=== PATIENT | male | born 1945 | race Caucasian/White ===

== ENCOUNTER 2020-04-17 09:44 | Emergency (ER) | payer MEDICARE ==
[~2020-04-17] VITALS: Ht 190.5 cm; Wt 86.0 kg
[~2020-04-17 09:44] MED LIST: BUDE10.2 IH; CYCL10TA2 PO; DILT240C2 PO; PRED20TA PO; PROVENTIL HFA6.7 GM IH; TIOT18CA IH
[2020-04-17] MEDS ORDERED: LIDOCAINE 1%/EPI 1:100,000 20 ML VIAL. INJ ONE (11:00)
[2020-04-17] MEDS ORDERED: COCAINE 4% TOPICAL SOLUTION. TP ONE (11:00)
[2020-04-17] MEDS ORDERED: SILVER NITRATE STICK TP ONE (11:00)
[2020-04-17 11:31] VITALS: BP 162/74
[2020-04-17] MEDS ORDERED: OXYM30SP25 NS (11:40)
--- NOTE | 2020-04-17 11:40 | PHYS DOC ---
Past Medical History Past Medical History: COPD, Hypertension Past Surgical History: Other Additional Past Surgical Histo: splenectomy, eye cauterization Smoking Status: Current Every Day Smoker Alcohol Use: Occasionally Drug Use: None General Adult EDM: Chief Complaint: NOSEBLEED HPI: HPI: Patient is a 74 year old male who presented to ER for evaluation of right-sided nosebleed since last night. Patient has history hypertension, denies any headache, no chest pain, no abdominal pain. Patient said he was sneezing last night, noted blood coming from his nose the right side. It was stopped then. Woke up this morning he started having bleeding again on the right side. So he came here for evaluation. Patient is not on any blood thinner. Review of Systems: Review of Systems: Constitutional: Denies fever or chills. [] Eyes: Denies change in visual acuity. [] HENT: Denies nasal congestion or sore throat. Positive for nose bleeding. Respiratory: Denies cough or shortness of breath. [] Cardiovascular: Denies chest pain or edema. [] GI: Denies abdominal pain, nausea, vomiting, bloody stools or diarrhea. [] : Denies dysuria. [] Musculoskeletal: Denies back pain or joint pain. [] Integument: Denies rash. [] Neurologic: Denies headache, focal weakness or sensory changes. [] Endocrine: Denies polyuria or polydipsia. [] Lymphatic: Denies swollen glands. [] Psychiatric: Denies depression or anxiety. [] Heart Score: Risk Factors: Risk Factors: DM, Current or recent (<one month) smoker, HTN, HLP, family history of CAD, obesity. Risk Scores: Score 0 - 3: 2.5% MACE over next 6 weeks - Discharge Home Score 4 - 6: 20.3% MACE over next 6 weeks - Admit for Clinical Observation Score 7 - 10: 72.7% MACE over next 6 weeks - Early Invasive Strategies Current Medications: Current Medications Medications (Trade) Dose Ordered Sig/Catie Start Time Stop Time Status Last Admin Dose Admin Cocaine HCl (Cocaine 4% Topical) 4 ml 1X ONCE 04/17/20 11:00 04/17/20 11:01 DC Lidocaine/ Epinephrine (LIDOCAINE 1%-EPI 1:100,000 Multi-Dose) 20 ml 1X ONCE 04/17/20 11:00 04/17/20 11:01 DC Silver Nitrate/ Potassium Nitrate 1 each 1X ONCE 04/17/20 11:00 04/17/20 11:01 DC Allergies: Allergies: Allergies Coded Allergies Type Severity Reaction Last Updated Verified triamcinolone Allergy Intermediate nosebleeds 04/17/20 Yes Physical Exam: PE: Constitutional: Well developed, well nourished, no acute distress, non-toxic appearance. [] HENT: Normocephalic, atraumatic, bilateral external ears normal, oropharynx moist, no oral exudates, nose bleeding on right anterior nare. Eyes: PERRLA, EOMI, conjunctiva normal, no discharge. [] Neck: Normal range of motion, no tenderness, supple, no stridor. [] Cardiovascular:Heart rate regular rhythm, no murmur [] Lungs & Thorax: Bilateral breath sounds clear to auscultation [] Abdomen: Bowel sounds normal, soft, no tenderness, no masses, no pulsatile masses. [] Skin: Warm, dry, no erythema, no rash. [] Back: No tenderness, no CVA tenderness. [] Extremities: No tenderness, no cyanosis, no clubbing, ROM intact, no edema. [] Neurologic: Alert and oriented X 3, normal motor function, normal sensory function, no focal deficits noted. [] Psychologic: Affect normal, judgement normal, mood normal. [] Current Patient Data: Vital Signs: Vital Signs Date Time Temp Pulse Resp B/P (MAP) Pulse Ox O2 Delivery O2 Flow Rate FiO2 04/17/20 10:00 97.8 84 15 189/88 (121) 91 Room Air 97.8 EKG: EKG: [] Radiology/Procedures: Radiology/Procedures: Indication: Epistaxis Procedure: The patient was positioned appropriately and the nares were cleared as well as possible. The bleeding site was identified on right anterior septum. COCAINE WITH EPI SOLUTION WAS SOAKED IN A COTTON BALLS, INSERTED INTO RIGHT RIGHT NARE. Hemostasis was obtained. SILVER NITRATE STICK WAS USED TO CAUTERIZE THE BLEEDING AREA. NO MORE BLEEDING WAS OBSERVED AFTER 45 MINUTES. The patient tolerated the procedure well. Complications: none.[] Course & Med Decision Making: Course & Med Decision Making Pertinent Labs and Imaging studies reviewed. (See chart for details) [] Dragon Disclaimer: Dragon Disclaimer: This electronic medical record was generated, in whole or in part, using a voice recognition dictation system. Departure Departure Impression: Primary Impression: Anterior epistaxis Disposition: 01 DC HOME SELF CARE/HOMELESS Condition: IMPROVED Referrals: ANTONIO VERDUGO MD (PCP) ELIEZER VERDUGO MD Please call this ENT physician for outpatient follow up next week. Patient Instructions: Nosebleed Additional Instructions: Thank you for visiting our Emergency Department. We appreciate you trusting us with your care. If any additional problems come up don't hesitate to return to visit us. Please follow up with your primary care provider so they can plan additional care if needed and know about the problem that you had. If symptoms worsen come back to the Emergency Department. Any concerning symptoms that start such as chest pain, shortness of air, weakness or numbness on one side of the body, running high fevers or any other concerning symptoms return to the ER. Scripts Oxymetazoline Hcl (AFRIN) 30 Ml [place] 2 SPRAYS NS QID PRN for nose bleed, #1 BOT Prov: RANJANA TORRES DO 04/17/20 RANJANA TORRES DO Apr 17, 2020 11:40
== END 2020-04-17 11:50 | disposition home or self-care (01) ==
LOC: ER 09:44
DX: R04.0 Epistaxis (principal); J44.9 Chronic obstructive pulmonary disease, unspecified; I10 Essential (primary) hypertension; F17.200 Nicotine dependence, unspecified, uncomplicated; Z98.890 Other specified postprocedural states; Z88.8 Allergy status to other drugs, medicaments and biological substances
CPT/HCPCS: 30901; 99284; J3490

== ENCOUNTER → 2020-05-05 | Outpatient (CLI) | payer MEDICARE ==
[2020-04-30 11:00] VITALS: BP 137/77
[~2020-05-05] MED LIST changes: +LORA-434 PO; +Nicotine 14MG TD; +OXYM30SP25 NS
[2020-05-05 14:47] LABS: BASO # 0.1 x10^3/uL (0.0-0.2); BASO % 0 % (0-3); EOS % 0 % (0-3); HEMATOCRIT 39.9 % (39.0-53.0); HEMOGLOBIN 13.3 g/dL (13.0-17.5); LYMPH # 0.7 x10^3/uL (1.0-4.8); LYMPH % 4 % (24-48); MEAN CORPUSCULAR HEMOGLOBIN 30 pg (25-35); MEAN CORPUSCULAR HGB CONC 33 g/dL (31-37); MEAN CORPUSCULAR VOLUME 89 fL (79-100); MONO # 0.7 x10^3/uL (0.0-1.1); MONO % 4 % (0-9); NEUT # 17.4 x10^3/uL (1.8-7.7); NEUT % 93 % (31-73); PLATELET COUNT 311 x10^3/uL (140-400); RED BLOOD COUNT 4.51 x10^6/uL (4.30-5.70); RED CELL DISTRIBUTION WIDTH 16.6 % (11.5-14.5); WHITE BLOOD COUNT 18.8 x10^3/uL (4.0-11.0)
[2020-05-05 14:55] LABS: CALCIUM 9.4 mg/dL (8.5-10.1); CREATININE 0.8 mg/dL (0.7-1.3); POTASSIUM 4.2 mmol/L (3.5-5.1)
[2020-05-05 15:01] LABS: ALBUMIN 2.6 g/dL (3.4-5.0); ALBUMIN/GLOBULIN RATIO 0.6 (1.0-1.7); TOTAL BILIRUBIN 0.5 mg/dL (0.2-1.0); TOTAL PROTEIN 6.8 g/dL (6.4-8.2)
[2020-05-05 15:07] LABS: % LYMPHS 4 % (24-48); % MONOS 3 % (0-10); % SEGS 93 % (35-66); PLT ESTIMATE ADEQUATE (ADEQUATE); POIKILOCYTOSIS SLIGHT
[2020-05-05 15:08] LABS: SCHISTOCYTES OCC
== END ==
LOC: ONCLAB 14:24
PROVIDERS: ATTEND Internal Medicine Hematology & Oncology
DX: C34.91 Malignant neoplasm of unspecified part of right bronchus or lung (principal)
CPT/HCPCS: 36415; 80053; 85007; 85025

== ENCOUNTER → 2020-05-13 | Outpatient (CLI) | payer MEDICARE ==
[~2020-05-13] MED LIST changes: +GADOTERATE 7.5 MMOL/15ML VIAL. IVP ONE; +KETAMINE HCL IN NACL, ISO-OSM 50 MG/5 ML SYRINGE ONE; +MIDAZOLAM HCL/PF 2 MG/2 ML VIAL. ONE; +fentaNYL PF VIAL 100 MCG/2 ML VIAL ONE
[2020-05-13 13:57] VITALS: BP 154/78
--- NOTE | 2020-05-13 15:58 | RAD ---
MRI BRAIN WO+W Date: 05/13/2020 12:43 PM Indication: staging mets check. Hx lung Comparison: None. Technique: Multiplanar multisequence MRI of the brain was performed with and without intravenous cont rast using the standard protocol. 15 cc Clariscan contrast was administered intravenously during the exam. Findings: No acute infarct. No acute or chronic hemorrhage. The ventricles are normal in size and configuration without hydrocephalus. Minimal scattered FLAIR hyperintensities in the subcortical and periventricul ar deep white matter, a nonspecific finding, appropriate for patient age. No abnormal enhancement. The scalp and calvarium are normal. The pituitary and sella are normal. No Chiari malformation. The v isualized upper cervical spine is normal. The visualized orbits and globes are normal. Opacification of the left maxillary sinus. The mastoid a ir cells are clear. Normal flow voids within the vertebral, basilar, and internal carotid arteries indicating patency. IMPRESSION: No evidence of intracranial metastatic disease Electronically signed by: Abraham Baeza MD (05/13/2020 3:56 PM) [id number]
== END ==
LOC: SURG 11:42
PROVIDERS: ATTEND Internal Medicine Hematology & Oncology
DX: C34.91 Malignant neoplasm of unspecified part of right bronchus or lung (principal)
CPT/HCPCS: 70553; A9575; J2250; J3010

== ENCOUNTER → 2020-05-21 | Outpatient (CLI) | payer MEDICARE ==
[2020-05-13 13:57] VITALS: BP 154/78
[~2020-05-21] MED LIST changes: -GADOTERATE 7.5 MMOL/15ML VIAL. IVP ONE; -KETAMINE HCL IN NACL, ISO-OSM 50 MG/5 ML SYRINGE ONE; -MIDAZOLAM HCL/PF 2 MG/2 ML VIAL. ONE; -fentaNYL PF VIAL 100 MCG/2 ML VIAL ONE
--- NOTE | 2020-05-21 12:25 | RAD ---
EXAM: Dual modality PET-CT Scan DATE: 05/21/2020 RADIOPHARMACEUTICAL: 15.25 mCi F-18 fluorodeoxyglucose (FDG) IV. CLINICAL HISTORY: Lung cancer. COMPARISON: 04/27/2020 TECHNIQUE: Approximately 45 minutes after tracer administration, routine, attenuation-corrected Posit cierra Emission Tomography (PET) images were obtained from the level of the base of the skull through th e level of the mid thighs. Tomographic reconstructions are reviewed in coronal, transaxial and sagitt al planes. Non-contrast CT imaging was performed for attenuation correction and localization purpose s only. These images do not constitute a diagnostic-quality CT examination and were not used to diag nose disease independently of the PET images. The blood glucose level was 112 mg/dL at the time of FDG administration. *One or more of the following individualized dose reduction techniques were utilized for this examina tion: 1. Automated exposure control. 2. Adjustment of the mA and/or kV according to patient size. 3. Use of iterative reconstruction technique. FINDINGS: The exam is significantly limited due to patient respiratory motion. The patient was unable to complete the exam due to respiratory distress. There is a radiotracer avid right hilar and suprahilar mass with a maximum SUV of 9.3 measuring appro ximately 11.4 cm in maximum transaxial dimension and 14.5 cm in maximum craniocaudal dimension. This is not separable from suspected right mediastinal and hilar lymphadenopathy. The radiotracer activity associated with this mass extends along the right greater than left mainstem bronchi. There are radiotracer avid mass within the deep and superficial lobes of the left parotid gland and w ithin the right parotid gland with maximum SUVs of 5.6 and 6.6 on the left at 3.5 cm on the right. Th e largest of these is seen on the left measuring 2.4 cm. No additional abnormal tracer activity is se en within the head or neck. There is mild radiotracer activity associated with bilateral lower lobe infiltrate. This is likely in fectious in etiology. There is no convincing abnormal radiotracer activity associated with a heteroge neous slightly hyperdense lesion within the right kidney. There is expected tracer activity within th e bowel and renal collecting system. There is diffusely heterogeneous increased tracer activity withi n the axial and appendicular skeleton. No corresponding CT finding is seen to suggest metastatic dise ase. The CT portion of the exam demonstrates a large left suprahilar mass measuring approximately 14.4 x 1 1.4 cm in maximum dimensions. This encases the superior vena cava and there is a right superior vena cava stent. The lesion also involves the trachea and right greater than left mainstem bronchus. There is complete attenuation of the traversing left superhilar bronchi and vessels. There is tumor or asp irated mucus within the patent portion of the right mainstem bronchus. There is suspected conglomerat e right mediastinal and hilar and subcarinal lymphadenopathy which is not separable from the mass. There is no pneumothorax. There is biapical pleural parenchymal scarring and emphysema. There is part ially bilateral lower lobe infiltrate. There is lingular infiltrate. There is an 8 mm nodule within t he right middle lobe along the minor fissure, likely an enlarged fissural lymph node. There are few c alcified granulomas. There is complete opacification of the left maxillary sinus with sinus wall thickening due to chronic sinusitis. There is minimal fluid within the mastoid air cells. There is calcified plaque involving the carotid arteries. There is no neck lymphadenopathy. There are degenerative changes throughout the spine. There are multiple chronic rib fractures. There is a 4.8 cm nodule superior to the left clavi sher. This demonstrates no radiotracer activity, favoring a complex cystic etiology. There is a simila r-appearing smaller suspected sebaceous cyst within the posterior left shoulder subcutaneous fat. No hepatic lesion is seen. The gallbladder, pancreas and adrenal glands are unremarkable. There are m ultiple nodules within the left upper quadrant due to splenules/splenosis. There is a 5.8 cm lesion w ithin the upper pole of the right kidney and 1.2 cm lesion within the lateral mid zone of the right k idney. There is a suspected 10 mm hemorrhagic cyst within the anterior left kidney. There is pleural nephrolithiasis. There is no evidence of bowel obstruction. There is a moderate left inguinal hernia containing fat an d the proximal sigmoid colon. There is no evidence of bowel incarceration or mechanical obstruction. There is a small fat-containing right inguinal hernia. There is calcification within the dependent po rtion of the bladder likely due to bladder stones. There is prostatomegaly. There is heavily calcifie d plaque involving the aorta. There are nonspecific retroperitoneal lymph nodes. There are degenerati ve changes throughout the spine. There is multilevel listhesis and scoliosis. There is no acute osseo us finding. IMPRESSION: 1. Radiotracer avid right hilar and suprahilar mass measuring 14.4 cm in maximum dimension with a max imum SUV of 9.3. This is consistent with primary malignancy. This lesion encases the superior vena ca va status post stent placement and there is involvement of the trachea and right and likely left main stem bronchi, better characterized on the contrast-enhanced exam performed 04/27/2020. 2. Radiotracer avid left greater than right parotid masses. These may be due to primary parotid malig drake or metastases. These are likely amenable to sonographic guided tissue sampling if clinically in dicated. 3. No convincing radiotracer activity associated with a 5.8 cm lesion within the upper pole the left kidney. This may be a complicated/hemorrhagic cyst. A mass is not excluded. There is also a suspected hemorrhagic cyst within the left kidney. Renal sonography is recommended to exclude a solid lesion c omponent. 4. Bilateral lower lobe pneumonia. 5. Emphysema. 6. 8 mm right middle lobe pulmonary nodule, likely due to a pathologically enlarged fissural lymph no de. This is too small to characterize with PET. 7. Moderate left internal hernia containing sigmoid colon. 8. Prostatomegaly. 9. Colonic diverticulosis. 10. Suspected urinary bladder stones. 11. Diffusely heterogeneous radiotracer activity within the axial and appendicular skeleton. There is no CT correlate for this finding. 12. Note is made of the exam is limited due to patient respiratory distress. The exam is degraded by motion and the patient was unable to complete the entire exam. Electronically signed by: Olga Cuelalr MD (05/21/2020 12:21 PM) [id number]
== END ==
LOC: PETSC 11:06
PROVIDERS: ATTEND Internal Medicine Hematology & Oncology
DX: C34.11 Malignant neoplasm of upper lobe, right bronchus or lung (principal); J43.9 Emphysema, unspecified; R91.1 Solitary pulmonary nodule; J18.9 Pneumonia, unspecified organism; N28.1 Cyst of kidney, acquired; K45.8 Other specified abdominal hernia without obstruction or gangrene; K40.90 Unilateral inguinal hernia, without obstruction or gangrene, not specified as recurrent; I70.0 Atherosclerosis of aorta; K57.30 Diverticulosis of large intestine without perforation or abscess without bleeding; N40.0 Benign prostatic hyperplasia without lower urinary tract symptoms; I25.10 Atherosclerotic heart disease of native coronary artery without angina pectoris; S22.49XA Multiple fractures of ribs, unspecified side, initial encounter for closed fracture; X58.XXXA Exposure to other specified factors, initial encounter; Y93.89 Activity, other specified; Y92.89 Other specified places as the place of occurrence of the external cause; Y99.8 Other external cause status
CPT/HCPCS: 78815; A9552

== ENCOUNTER 2020-05-23 06:21 | Inpatient (IN) | payer MEDICARE ==
[~2020-05-23] VITALS: Ht 190.5 cm; Wt 78.0 kg
[2020-05-23] VITALS (13 sets, daily range): BP systolic 110–166; BP diastolic 52–76
[2020-05-23 06:45] LABS: BASE EXCESS COOX -4 mmol/L (-3-3); HCO3 COOX 22 mmol/L (21-28); METHEMOGLOBIN 0.4 % (0.0-1.9); OXYHEMOGLOBIN 93.3 %; PCO2 COOX 45 mmHg (35-46); PO2 COOX 77 mmHg (65-108); SAT O2 COOX 94 % (92-99)
[2020-05-23] MEDS ORDERED: ASPIRIN ENTERIC COATED 325 MG TABLET.DR. PO ONE (06:45)
[2020-05-23] MEDS ORDERED: IV NORMAL SALINE 1000ML BAG 1,000 ML IV ONE ×2 (06:45→09:00)
[2020-05-23] MEDS ORDERED: DEXAMETHASONE SOD PHOS 20 MG/5 ML VIAL. IVP ONE (06:45)
--- NOTE | 2020-05-23 06:56 | PHYS DOC ---
Past Medical History Past Medical History: Cancer, COPD, Hypertension Additional Past Medical Histor: NON-SMALL CELL LUNG CA Past Medical History Limited secondary to patient's respiratory distress. Past Surgical History: Other Additional Past Surgical Histo: splenectomy, eye cauterization Past Surgical History Limited secondary to patient's respiratory distress. Smoking Status: Current Every Day Smoker Alcohol Use: Occasionally Drug Use: None Social History Limited secondary to patient's respiratory distress. General Adult EDM: Chief Complaint: SHORTNESS OF BREATH HPI: HPI: Patient is a 74 year old male presents via EMS with report of shortness of breath that started upon waking this AM at approximately 0500. Patient reports he typically is on supplemental O2 of 9 L nasal cannula . Hx of small cell lung cancer and COPD. Patient recently admitted to the hospital in April at which time it was found he had large mass in chest and concern for additional mass on kidney. Patient denies any fever or chills. Reports increased work of breathing that is worse with exertion. Denies trauma. Reports some leg swelling which he reports is his baseline. Denies history of PE/DVT. Denies known exposure to COVID-19. Patient does report has been tested several times in the last month which have all been negative. History of present illness limited secondary to patient's respiratory distress. Review of Systems: Review of Systems: Constitutional: Denies fever or chills Eyes: Denies redness or eye pain HENT: Denies nasal congestion or sore throat Respiratory: Denies cough; reports shortness of breath Cardiovascular: Denies chest pain or palpitations GI: Denies nausea or vomiting Neurologic: Denies headache, focal weakness or sensory changes Review of systems limited secondary to patient's respiratory distress. Current Medications: Current Medications Medications (Trade) Dose Ordered Sig/Catie Start Time Stop Time Status Last Admin Dose Admin Aspirin (Ecotrin) 325 mg 1X ONCE 05/23/20 06:45 05/23/20 06:46 DC Dexamethasone Sodium Phosphate (Decadron) 10 mg 1X ONCE 05/23/20 06:45 05/23/20 06:46 DC Lorazepam (Ativan Inj) 0.5 mg 1X ONCE 05/23/20 07:00 05/23/20 07:01 Sodium Chloride 1,000 ml @ 1,000 mls/hr 1X ONCE 05/23/20 06:45 05/23/20 07:44 Allergies: Allergies: Allergies Coded Allergies Type Severity Reaction Last Updated Verified triamcinolone Allergy Intermediate nosebleeds 04/28/20 Yes Physical Exam: PE: Constitutional: Well developed, well nourished, acute respiratory distress, non- toxic appearance HENT: Normocephalic, atraumatic Eyes: Conjunctiva normal, no discharge Neck: Normal range of motion, no tenderness, supple Lungs & Thorax: Moderate respiratory distress, equal chest rise and fall Abdomen: Soft, no tenderness Skin: Warm, dry, no erythema, no rash Extremities: No tenderness, ROM intact, no edema Neurologic: Alert and oriented X 3, no focal deficits noted Psychologic: Affect anxious, judgment normal Current Patient Data: Vital Signs: Vital Signs Date Time Temp Pulse Resp B/P (MAP) Pulse Ox O2 Delivery O2 Flow Rate FiO2 05/23/20 06:25 99.2 107 28 136/59 (84) 89 NonRebreather Mask 15.0 99.2 EKG: EKG: @0633 Sinus tachycardia at 137bpm, occasional PVC, wandering baseline, QRS 90ms, QT/QTc 252/382ms, NO ST elevation, slight ST depression noted to V4-V6 Radiology/Procedures: Radiology/Procedures: PROCEDURE: CT ANGIOGRAPHY CHEST CTA chest with and without contrast 05/23/2020. Reason for exam: Dyspnea and hypoxia. History of lung mass. Helical thin section images were made through the chest using an infusion of 100 mL Omnipaque 350. MIP reconstructions were performed. Comparison is made with a study of 04/27/2020. FINDINGS: A large mass is again demonstrated in the upper right chest involving the lung and extending to the mediastinum. This appears very similar to the prior study. There may have been slight enlargement. Mediolateral dimension just below the aortic arch is about 10.3 cm compared with about 9.7 cm by my measurement previously. The mass is narrowing and deviating the trachea and obstructing the right mainstem bronchus and proximal lobar bronchi. The distal trachea may be slightly more narrowed than previously. There appear to be secretions within right lower lobe bronchi, similar to the prior exam. There is also still narrowing of the right upper lobe pulmonary artery branch. There is still mild adjacent infiltrate. There is some respiratory motion artifact, but infiltrate or atelectasis is also seen in the lower lobes. There appears to have been some improved aeration of the left lower lobe. No significant new parenchymal abnormality is seen. There is some emphysema in the lungs. No new enlarged lymph nodes are seen elsewhere. Confluent soft tissue abnormality extends from the right into the mid mediastinum and subcarinal regions and toward the AP window. There is now a stent in the SVC, and contrast is seen extending through the stent. Evaluation of the pulmonary arterial tree demonstrates narrowing of the right upper lobe branch, as described above. There is probably occlusion of some of the branches. No filling defect is seen to indicate pulmonary embolism. Evaluation of lower lobe branches is slightly limited by motion. Images through the upper abdomen show soft tissue abnormality in the anterior right kidney suggesting a mass. No new abnormality is seen. The right hemidiaphragm remains elevated. IMPRESSION: Right lung mass may have increased slightly in size. It is causing narrowing and probable occlusion of some of the right upper lobe pulmonary artery branches, but this had a similar appearance previously. No pulmonary embolism is identified on today's study. Electronically signed by: Jaison Hollis Jr., MD (05/23/2020 8:58 AM) [id number] Course & Med Decision Making: Course & Med Decision Making Pertinent Labs and Imaging studies reviewed. (See chart for details) Patient presents in respiratory distress and hypoxia. History of known non- small cell lung cancer with compression of bronchus. Patient tachycardic. Cannot exclude PE. Cannot exclude COVID-19. Per [facility] review last Covid testing from 04/27/2020. COVID-[address] Patient placed on Vapotherm high flow nasal cannula with improvement. Patient does appear anxious. Anxiety and discomfort addressed. Labs obtained and posted to chart. Patient also with recent PET scan per [facility] review with signs of possible pneumonia. Decision to start empiric antibiotics at this time. WBC slightly elevated. Lactic acid within normal limits. Troponin also within normal limits. COVID-19 testing pending. CTA chest without signs of PE. Concern for enlargement of mass in comparison to prior CT from April 2020. Patient requiring admission for further evaluation and treatment. Discussed with Dr. Verdugo (PCP) who is in agreement with ICU admission. Consult placed to Dr. Harper (pulmonology). Discussed case with Dr. Harper, who evaluated patient in ED and discussed case with family. Discussed findings and plan with patient, who acknowledges understanding and agreement. Of note: patient initially requested "Full CODE" status. After discussion with Dr. Harper regarding findings, patient elected to change CODE status to "DNR". CODE status therefore updated in admission orders. COVID-19 CRITERIA: The patient was evaluated during the global COVID-19 pandemic, and that diagnosis was suspected/considered upon their initial presentation. Their evaluation, treatment and testing was consistent with current guidelines for patients who present with complaints or symptoms that may be related to COVID-19. Dragon Disclaimer: Dragon Disclaimer: This electronic medical record was generated, in whole or in part, using a voice recognition dictation system. Departure Departure Impression: Primary Impression: Respiratory failure Qualified Codes: J96.21 - Acute and chronic respiratory failure with hypoxia Additional Impressions: Lung malignancy Qualified Codes: C34.90 - Malignant neoplasm of unspecified part of unspecified bronchus or lung Hypoxia Suspected 2019 novel coronavirus infection Disposition: ADMITTED INPT THIS HOSP Admitting Physician: Antonio Verdugo Condition: GUARDED Referrals: ANTONIO VERDUGO MD (PCP) COVID-19 Assessment: COVID-19 Patient Risks: Age 65 or older: Yes Sign of co-morbidity: Yes Exp to person + for COVID: No Exp to PUI: No Travel from affected area: No Lower respiratory symptoms: Yes Fever: No PPE Use: Full PPE with N95 mask or PAPR: Yes Critical Care Time Critical care time was 30 minutes which includes time at bedside, spent in discussion of patient's care with specialists and/or family members, with interpretation of laboratory and/or radiological studies and is exclusive of procedures. ISRAEL MARK DO May 23, 2020 06:56
[2020-05-23 06:57] LABS: BASO # 0.1 x10^3/uL (0.0-0.2); BASO % 1 % (0-3); EOS # 0.7 x10^3/uL (0.0-0.7); EOS % 5 % (0-3); HEMATOCRIT 39.8 % (39.0-53.0); HEMOGLOBIN 13.2 g/dL (13.0-17.5); LYMPH % 30 % (24-48); MEAN CORPUSCULAR HEMOGLOBIN 30 pg (25-35); MEAN CORPUSCULAR HGB CONC 33 g/dL (31-37); MEAN CORPUSCULAR VOLUME 90 fL (79-100); MONO # 1.4 x10^3/uL (0.0-1.1); MONO % 10 % (0-9); NEUT # 7.4 x10^3/uL (1.8-7.7); NEUT % 55 % (31-73); PLATELET COUNT 204 x10^3/uL (140-400); RED BLOOD COUNT 4.44 x10^6/uL (4.30-5.70); WHITE BLOOD COUNT 13.6 x10^3/uL (4.0-11.0)
[2020-05-23] MEDS ORDERED: IOHEXOL 350 MG/ML 100 ML VIAL. IV ONE (07:15)
[2020-05-23] MEDS ORDERED: CONTRAST GIVEN. MC PRN (07:15)
[2020-05-23] MEDS ORDERED: IPRATRPIUM/ALBUTEROL 0.5/2.5MG 3 ML NEBU. NEB ONE ×2 (07:45→13:45)
[2020-05-23] MEDS ORDERED: PIPERACILLIN/TAZOBACTAM 4.5 GM in IV NORMAL SALINE 100ML 100 ML IV ONE (07:45)
[2020-05-23] MEDS ORDERED: AZITHRMYCN 500MG IVPB FOR OMNI 250 ML IV ONE (07:45)
[2020-05-23] MEDS ORDERED: MORPHINE SULFATE 4 MG/ML VIAL. IV ONE (07:45)
[2020-05-23 08:10] LABS: CALCIUM 9.6 mg/dL (8.5-10.1); CREATININE 0.8 mg/dL (0.7-1.3); POTASSIUM 3.8 mmol/L (3.5-5.1)
[2020-05-23 08:16] LABS: ALBUMIN 2.7 g/dL (3.4-5.0); ALBUMIN/GLOBULIN RATIO 0.8 (1.0-1.7); MAGNESIUM 1.8 mg/dL (1.8-2.4); TOTAL BILIRUBIN 0.5 mg/dL (0.2-1.0)
[2020-05-23 08:17] LABS: INFLUENZA A PATIENT NEGATIVE (NEGATIVE); INFLUENZA B PATIENT NEGATIVE (NEGATIVE)
[2020-05-23 08:21] LABS: PROTHROMBIN TIME PATIENT 13.5 SEC (11.7-14.0)
[2020-05-23 08:25] LABS: CREATINE KINASE 19 U/L (39-308)
--- NOTE | 2020-05-23 09:12 | RAD ---
CTA chest with and without contrast 05/23/2020. Reason for exam: Dyspnea and hypoxia. History of lung mass. Helical thin section images were made through the chest using an infusion of 100 mL Omnipaque 350. UT P reconstructions were performed. Comparison is made with a study of 04/27/2020. FINDINGS: A large mass is again demonstrated in the upper right chest involving the lung and extendin g to the mediastinum. This appears very similar to the prior study. There may have been slight enlarg ement. Mediolateral dimension just below the aortic arch is about 10.3 cm compared with about 9.7 cm by my measurement previously. The mass is narrowing and deviating the trachea and obstructing the rig ht mainstem bronchus and proximal lobar bronchi. The distal trachea may be slightly more narrowed cheng n previously. There appear to be secretions within right lower lobe bronchi, similar to the prior exa m. There is also still narrowing of the right upper lobe pulmonary artery branch. There is still mild adjacent infiltrate. There is some respiratory motion artifact, but infiltrate or atelectasis is als o seen in the lower lobes. There appears to have been some improved aeration of the left lower lobe. No significant new parenchymal abnormality is seen. There is some emphysema in the lungs. No new enla rged lymph nodes are seen elsewhere. Confluent soft tissue abnormality extends from the right into th e mid mediastinum and subcarinal regions and toward the AP window. There is now a stent in the SVC, a nd contrast is seen extending through the stent. Evaluation of the pulmonary arterial tree demonstrates narrowing of the right upper lobe branch, as d escribed above. There is probably occlusion of some of the branches. No filling defect is seen to ind icate pulmonary embolism. Evaluation of lower lobe branches is slightly limited by motion. Images through the upper abdomen show soft tissue abnormality in the anterior right kidney suggesting a mass. No new abnormality is seen. The right hemidiaphragm remains elevated. IMPRESSION: Right lung mass may have increased slightly in size. It is causing narrowing and probable occlusion of some of the right upper lobe pulmonary artery branches, but this had a similar appearan ce previously. No pulmonary embolism is identified on today's study. Electronically signed by: Jaison Hollis Jr., MD (05/23/2020 8:58 AM) [id number]
[2020-05-23] MEDS ORDERED: ACETAMINOPHEN 325 MG TABLET. PO PRN (09:30)
[2020-05-23] MEDS ORDERED: MORPHINE SULFATE 4 MG/ML VIAL. IV PRN (09:30)
[2020-05-23] MEDS ORDERED: ONDANSETRON PF 4 MG/2 ML VIAL. IV PRN (09:30)
[2020-05-23] MEDS ORDERED: HYDROmorphone 2 MG/ML VIAL IVP ONE (12:00)
--- NOTE | 2020-05-23 12:01 | EKG ---
[facility] [address] [place] [address] Test Date: 2020-05-23 Test Time: 06:33:22 Pat Name: ECHO CROSS Department: Room: Gender: M Certified Pedorthotist: : 1945 Requested By: ISRAEL MARK Order Number: [id number] Reading MD: Measurements Intervals [place] Rate: 137 P: 90 AR: 132 QRS: 66 QRSD: 90 T: 154 QT: 252 QTc: 382 Interpretive Statements SINUS TACHYCARDIA COMPLEX(ES) WITH ABERRANT INTRAVENTRICULAR CONDUCTION ATRIAL PREMATURE COMPLEX(ES) ST & T ABNORMALITY, CONSIDER ANTERIOR ISCHEMIA OR LEFT VENTRICULAR STRAIN INFEROLATERAL ISCHEMIA OR LEFT VENTRICULAR STRAIN ABNORMAL ECG RI6.02 No previous ECG available for comparison
[2020-05-23] MEDS ORDERED: STERILE WATER for RESP 1,000 ML BAG. INH PRN (12:15)
--- NOTE | 2020-05-23 12:16 | CONS ---
DATE OF CONSULTATION: PULMONARY CONSULTATION ATTENDING PHYSICIAN: Lukas Arce MD REASON FOR CONSULTATION: Respiratory failure, lung cancer. HISTORY OF PRESENT ILLNESS: The patient is a 74-year-old male who was diagnosed with non-small cell lung cancer in 04/2020. The patient presented with a large soft tissue mass in the right upper mediastinum, right hilum and extension into the right upper lobe. There was also occlusion of the right upper lobe and right mainstem extrinsic compression and also right upper lobe pulmonary arteries with high-grade narrowing of the SVC. The patient had a bronchoscopy. There was total occlusion of his right mainstem bronchus. There was all extrinsic compression. The patient eventually was diagnosed with non-small cell lung cancer. He has not had any radiation or chemo yet. He has been referred to radiation oncologist. He underwent stent placement of his superior vena cava. He was brought into the hospital with progressive dyspnea. He had some audible wheezing. He is on home oxygen at 9 liters via nasal cannula. The patient was seen by me in the ER. I could hear audible wheezing, which were faint. He appears to be very weak and emaciated. He has been losing weight progressively. He has a cough. No fever, no chills. No COVID exposure. PAST MEDICAL HISTORY: History of non-small cell lung cancer diagnosed recently as detailed above. History of COPD, hypertension, cancer. PAST SURGICAL HISTORY: Splenectomy and ____ cauterization. SOCIAL HISTORY: Everyday smoker for at least 40+ years. ALLERGIES: Triamcinolone. MEDICATIONS: Reviewed that were given in the ER. FAMILY HISTORY: Noncontributory to lungs. PHYSICAL EXAMINATION: VITAL SIGNS: Reviewed. Pulse ox 94% on 40 L Vapotherm. He appears weak, emaciated. NECK: Supple. LUNGS: With diminished breath sounds on the right side. CARDIOVASCULAR: With a regular rate and tachycardia. ABDOMEN: Soft. EXTREMITIES: With no pitting edema. LABORATORY DATA: SARS COVID rapid was negative. BUN 24, creatinine 0.8. ABGs with a pH of 7.31, pCO2 of 45, pO2 of 77 and bicarbonate of 22, 100% nonrebreather mask. Albumin 2.7. White cell count 13.6, hemoglobin 13.2 and platelets 204. IMAGING STUDIES: The PET scan from 05/21/2020 was reviewed. The patient had a 14.4 cm mass in the right hilar and suprahilar area. This was encasing the superior vena cava, status post stent placement. There was involvement of the trachea and right and left main stem bronchus. The patient's SUV was 9.3. IMPRESSION: 1. Acute on chronic hypoxic respiratory failure secondary to multifactorial etiologies including progression of non-small cell lung cancer, underlying chronic obstructive pulmonary disease and audible wheezing from airway obstruction. 2. The patient with recently diagnosed non-small cell lung cancer. He has had 14.4 cm mass in the right hilar and suprahilar area with extension and encasement of the superior vena cava. He is status post stent. There is involvement of the trachea with extrinsic compression and also involvement of the right and left main stem bronchus with airway compression. He is nonresectable. 3. Status post stent for superior vena cava syndrome. 4. Postobstructive pneumonia. 5. History of pseudomonas isolated from bronchoscopy in Apr 6. Suspected end-stage chronic obstructive pulmonary disease. RECOMMENDATIONS: 1. At this point, we will continue with present Vapotherm at 100% FiO2. Wean FiO2 to keep saturation 92 and above. Does not like BIPAP 2. I have discussion with the patient and in addition, his and daughter. I explained his poor prognosis from his progressive cancer. The patient agreed for DNR. In the meantime, we will consult Radiation Oncology for empiric radiation to reduce the tumor burden and hopefully improve patency of the airway. 3. Follow ABGs as needed while on Vapotherm. 4. Bronchodilators. 5. Add IV steroids. 6. Empiric antibiotics. 7. If the patient declines further, then we will go with comfort care and palliative care. 8. Discussed with ER physician, the patient's and daughter. Critical care time 40 minutes. MONTSERRAT CASTAÑEDA MD DR: OLIVIA/jonnie JOB#: [id number] / [id number] COLT
[2020-05-23] MEDS ORDERED: HYDROmorphone 2 MG/ML VIAL IVP PRN (14:00)
--- NOTE | 2020-05-23 16:00 | NUR ---
Pt arrived to [facility] 115 via ER cart. Pt alert and oriented, switched from 100% non rebreather to Vapotherm 100%. Pt moved to ICU bed and hooked up on monitor. Dr. Arce paged and orders received for Dilaudid 0.6mg IV PRN Q3HRS. No fluids ordered. Pt on cardiac diet and tolerating Ensure. Refusing meals as he says he has a hard time swallowing food. Pt oriented to call light and telephone. Urinal at bedside for pt. Attempt to call Dr. Sparrow but answering service unavailable. at bedside and updated on plan of care. Questions answered.
[2020-05-23] MEDS ORDERED: C.DIFF MED SCREEN BY RX. MC ONE (16:45)
[2020-05-23] MEDS ORDERED: NON FORMULARY ITEM (Albuterol Sulfate (Proventil Hfa Inhaler) 1 PUFF) IH PRN (17:00)
[2020-05-23] MEDS ORDERED: ALBUTEROL SULFATE 2.5 MG/3 ML NEBU. NEB PRN (17:15)
[2020-05-23] MEDS ORDERED: NICOTINE 14MG PATCH. TD PRN (17:15)
[2020-05-23] MEDS: HYDROmorphone 2 MG/ML VIAL IVP PRN ×2 (18:47→22:47)
[2020-05-23] MEDS ORDERED: IPRATRPIUM/ALBUTEROL 0.5/2.5MG 3 ML NEBU. NEB SCH (20:00)
[2020-05-23] MEDS: BUDESONIDE 0.5 MG/2 ML NEBU. NEB SCH (20:00)
[2020-05-23] MEDS: IPRATRPIUM/ALBUTEROL 0.5/2.5MG 3 ML NEBU. NEB SCH (20:00)
[2020-05-23] MEDS ORDERED: NON FORMULARY ITEM (Budesonide/Formoterol Fumarate (Symbicort 160-4.5 Mcg Inhaler) 2 PUFF) IH SCH (21:00)
[2020-05-24] VITALS (14 sets, daily range): BP systolic 120–183; BP diastolic 42–85
[2020-05-24] MEDS: HYDROmorphone 2 MG/ML VIAL IVP PRN (03:07)
[2020-05-24] MEDS: BUDESONIDE 0.5 MG/2 ML NEBU. NEB SCH ×2 (08:00→20:00)
[2020-05-24] MEDS: IPRATRPIUM/ALBUTEROL 0.5/2.5MG 3 ML NEBU. NEB SCH ×4 (08:00→20:00)
[2020-05-24] MEDS ORDERED: IV NORMAL SALINE 1000ML BAG 1,000 ML IV SCH (09:00)
[2020-05-24] MEDS ORDERED: MORPHINE SULFATE 2 MG/ML VIAL. IV ONE (09:00)
[2020-05-24] MEDS ORDERED: NON FORMULARY ITEM (Tiotropium Bromide (Spiriva) 1 CAP) IH SCH (09:00)
[2020-05-24] MEDS ORDERED: MORPHINE SULFATE 30 ML IV PRN (09:00)
[2020-05-24] MEDS ORDERED: NALOXONE 0.4 MG/ML VIAL. IV PRN (09:00)
--- NOTE | 2020-05-24 09:07 | PDOC ---
Provider Note Date of Service: DATE: 05/24/20 TIME: 09:05 Provider Note dictated, after eval and discussion, will start ms infusion and still use prn loraz- rad onc consult pending but may not be able to tolleate tx re dyspnea, tumor sixe- she agrees to plan Justifications for Admission Other Justification ANTONIO VERDUGO MD May 24, 2020 09:07
[2020-05-24] MEDS ORDERED: ONDANSETRON PF 4 MG/2 ML VIAL. IVP PRN (09:45)
--- NOTE | 2020-05-24 09:45 | HP ---
ADMIT DATE: CHIEF COMPLAINT: Dyspnea. HISTORY OF PRESENT ILLNESS: A 74-year-old white male recently diagnosed with non-small cell cancer of the right upper lobe with risk of this. He will be considered superior vena cava syndrome. He had a stent placed in the superior vena cava to prevent that obstruction, but has not yet seen an outpatient Oncology to schedule any specific treatment either radiation or chemo. Tumor was diagnosed by biopsy when the endobronchial exam showed complete obstruction of the right upper lobe. He came in with increasing dyspnea and air hunger and is on Vapotherm now 100% oxygen. He has decided not to be intubated, wants to be a DNR. PAST MEDICAL HISTORY: See old record. ALLERGIES: No allergies are known. SOCIAL HISTORY: Still a smoker until this recently, , retired. FAMILY HISTORY: Unremarkable. REVIEW OF SYSTEMS: Severe weight loss and progressive fatigue. OBJECTIVE: ENT: Unremarkable, though he has mask and Vapotherm on. NECK: No bruits, nodes or masses. LUNGS: Decreased breath sounds throughout his chest. He is audibly wheezing. CARDIOVASCULAR: Rate is about 100. Regular. No murmur is heard. ABDOMEN: Soft, benign, nontender. EXTREMITIES: He has 2+ clubbing. He has no edema. No joint or skin lesions. NEUROLOGIC: He is alert, agitated from air hunger. No focal findings are seen. ASSESSMENT: Progressive enlargement of a large primary pulmonary malignancy what appears to be a critical mass at this point. PLAN: Comfort care. We will add morphine infusion with p.r.n. lorazepam, pending consults of Radiation Oncology and Dr. Harper has already seen him. Prognosis is likely terminal. ANTONIO VERDUGO MD DR: NAYAN/jonnie JOB#: [id number] / [id number]
--- NOTE | 2020-05-24 09:57 | PDOC ---
PULMONARY PROGRESS NOTES DATE: 05/24/20 TIME: 09:54 Subjective CONFUSED, RESTLESS REMAINS ON 100%fio2 Vitals Vital Signs Date Time Temp Pulse Resp B/P (MAP) Pulse Ox O2 Delivery O2 Flow Rate FiO2 05/24/20 09:42 30 Vapotherm 40.0 05/24/20 08:07 96 05/24/20 06:00 96 164/71 (102) 05/24/20 01:13 97.5 97.5 General: Mild Distress Lungs: Other (decrease bs) Cardiovascular: S1 Abdomen: Soft Extremities: No Edema Skin: Warm Labs Laboratory Tests Test 05/23/20 06:30 05/23/20 06:38 05/23/20 07:30 05/23/20 07:35 O2 Saturation 94 % (92-99) Arterial Blood pH 7.31 (7.35-7.45) Arterial Blood pCO2 at Patient Temp 45 mmHg (35-46) Arterial Blood pO2 at Patient Temp 77 mmHg (65-108) Arterial Blood HCO3 22 mmol/L (21-28) Arterial Blood Base Excess -4 mmol/L (-3-3) Oxyhemoglobin 93.3 % Methemoglobin 0.4 % (0.0-1.9) Carbon Monoxide, Quantitative 0.3 % (0.0-1.9) FiO2 100 nrb White Blood Count 13.6 x10^3/uL (4.0-11.0) Red Blood Count 4.44 x10^6/uL (4.30-5.70) Hemoglobin 13.2 g/dL (13.0-17.5) Hematocrit 39.8 % (39.0-53.0) Mean Corpuscular Volume 90 fL (79-100) Mean Corpuscular Hemoglobin 30 pg (25-35) Mean Corpuscular Hemoglobin Concent 33 g/dL (31-37) Red Cell Distribution Width 17.0 % (11.5-14.5) Platelet Count 204 x10^3/uL (140-400) Neutrophils (%) (Auto) 55 % (31-73) Lymphocytes (%) (Auto) 30 % (24-48) Monocytes (%) (Auto) 10 % (0-9) Eosinophils (%) (Auto) 5 % (0-3) Basophils (%) (Auto) 1 % (0-3) Neutrophils # (Auto) 7.4 x10^3/uL (1.8-7.7) Lymphocytes # (Auto) 4.0 x10^3/uL (1.0-4.8) Monocytes # (Auto) 1.4 x10^3/uL (0.0-1.1) Eosinophils # (Auto) 0.7 x10^3/uL (0.0-0.7) Basophils # (Auto) 0.1 x10^3/uL (0.0-0.2) Prothrombin Time 13.5 SEC (11.7-14.0) Prothromb Time International Ratio 1.1 (0.8-1.1) Activated Partial Thromboplast Time 34 SEC (24-38) Sodium Level 144 mmol/L (136-145) Potassium Level 3.8 mmol/L (3.5-5.1) Chloride Level 105 mmol/L (98-107) Carbon Dioxide Level 27 mmol/L (21-32) Anion Gap 12 (6-14) Blood Urea Nitrogen 24 mg/dL (8-26) Creatinine 0.8 mg/dL (0.7-1.3) Estimated GFR (Cockcroft-Gault) 94.0 BUN/Creatinine Ratio 30 (6-20) Glucose Level 110 mg/dL (70-99) Lactic Acid Level 1.7 mmol/L (0.4-2.0) Calcium Level 9.6 mg/dL (8.5-10.1) Magnesium Level 1.8 mg/dL (1.8-2.4) Total Bilirubin 0.5 mg/dL (0.2-1.0) Aspartate Amino Transf (AST/SGOT) 18 U/L (15-37) Alanine Aminotransferase (ALT/SGPT) 19 U/L (16-63) Alkaline Phosphatase 80 U/L (46-116) Creatine Kinase 19 U/L (39-308) Creatine Kinase MB (Mass) 1.1 ng/mL (0.0-3.6) Creatine Kinase MB Relative Index % (0-4) Troponin I Quantitative < 0.017 ng/mL (0.000-0.055) TD-Ftj-S-Type Natriuretic Peptide 329 pg/mL (0-449) Total Protein 6.0 g/dL (6.4-8.2) Albumin 2.7 g/dL (3.4-5.0) Albumin/Globulin Ratio 0.8 (1.0-1.7) Coronavirus (PCR) Not detected (Not Detected) Influenza Type A Antigen Negative (NEGATIVE) Influenza Type B Antigen Negative (NEGATIVE) Test 05/23/20 07:36 SARS-CoV-2 Antigen (Rapid) Negative (NEGATIVE) Medications Active Scripts Medications Dose Route/Sig Max Daily Dose Days Date Category Ativan (Lorazepam) 1 Mg Tablet 1 Mg PO PRN Q8HRS PRN 5 04/30/20 Rx [Nicotine 14MG] 1 PATCH Patch 1 Patch TD PRN DAILY PRN 30 04/30/20 Rx Symbicort 160-4.5 Mcg Inhaler (Budesonide/Formoterol Fumarate) 10.2 Gm Hfa.aer.ad 2 Puff IH BID 02/23/16 Reported Proventil Hfa Inhaler (Albuterol Sulfate) 6.7 Gm Hfa.aer.ad 1 Puff IH PRN Q4HRS PRN 02/23/16 Reported Spiriva (Tiotropium [place]) 18 Mcg Cap.w.dev 1 Cap IH DAILY 02/23/16 Reported Cardizem Cd (Diltiazem Hcl) 240 Mg Cap.er.24h 1 Cap PO DAILY 02/23/16 Reported Impression . 1. Acute on chronic hypoxic respiratory failure secondary to multifactorial etiologies including progression of non-small cell lung cancer, underlying chronic obstructive pulmonary disease and audible wheezing from airway obstruction. 2. The patient with recently diagnosed non-small cell lung cancer. He has had 14.4 cm mass in the right hilar and suprahilar area with extension and encasement of the superior vena cava. He is status post stent. There is involvement of the trachea with extrinsic compression and also involvement of the right and left main stem bronchus with airway compression. He is nonresectable. 3. Status post stent for superior vena cava syndrome. 4. Postobstructive pneumonia. 5. History of pseudomonas isolated from bronchoscopy in Apr 18. Suspected end-stage chronic obstructive pulmonary disease. Plan . 1. At this point, we will continue with present 100% FiO2. Wean FiO2 to keep saturation 92 and above. Does not like BIPAP 2. I have discussion with the his again today. I explained his poor prognosis from his progressive cancer. Not sure if he can tolerate radiation at present. MS prior to XRT may worsen hypoxia. wants to still try XRT D/W Dr Rodriguez Radiation Oncology 3. Follow ABGs as needed 4. Bronchodilators. 5. IV steroids. 6. Empiric antibiotics. 7. If the patient declines further, then we will go with comfort care and palliative care. 8. cct 30 min MONTSERRAT CASTAÑEDA MD May 24, 2020 09:57
--- NOTE | 2020-05-24 10:46 | NUR ---
SS following up with discharge planning. SS reviewed pt chart and discussed with pt RN. Pt is from home with spouse. COVID19 negative. Pt was on Vapotherm at 100% and non-rebreather mask. Pt now comfort care. DNR. SS will continue to follow as needed.
--- NOTE | 2020-05-24 10:54 | NUR ---
Pharmacy Medication Review S: Consulted for medication review re: C.diff Risk Assessment score of 6 O: ECHO CROSS is a 74 year old with: Previous C.diff infection: No Previous hospitalization: Within 30 days Recent antibiotics: Within 30 days Use of gastric acid suppressor: No Transfer from MD/LTAC: No Current antibiotic regimen: NONE Current acid suppression regimen: A: Patient has been identified as having risk factors for C.diff infection as noted above. P: ABX DE-ESCALATION RECOMMENDED: PT NOT ON ABX PROBIOTIC ORDERED: NO PPI CHANGED TO [id number]: NO PHILIP العلي [facility], 05/24/20 1058
--- NOTE | 2020-05-24 13:47 | NUR ---
SS following up with discharge planning. Pt's RN contacted SS and reported that pt's spouse is requesting home with hospice services. SS phoned and faxed referral to [facility], ; fax [phone]. BIN reaching out to pt and family and will notify SS when consents are completed. SS will continue to follow for discharge planning.
[2020-05-24] MEDS: MORPHINE SULFATE 30 ML IV PRN ×2 (15:07→21:13)
--- NOTE | 2020-05-24 17:40 | NUR ---
SW following for discharge planning. SW spoke with RN and reviewed chart. Pt transferred to . Spoke with [facility]. Pt to discharge home tomorrow, 05/25 with hospice care. Pt's requesting transportation for around noon. SW to arrange. SW following.
--- NOTE | 2020-05-24 20:00 | NUR ---
Assessment completed. Patient sleeping in chair, on [employer] and comfort care. Does not respond to name. at bedside and staying with patient. states that her wishes are for us not to wake her as he has been "suffering the last few nights and finally just got medicated enough so he is not in pain." Will respect patient/family wishes, as patient is comfort care.
[2020-05-25] MEDS: MORPHINE SULFATE 30 ML IV PRN ×2 (03:10→09:12)
[2020-05-25 07:00] VITALS: BP 109/40
--- NOTE | 2020-05-25 08:21 | SNU/HH DC ---
DISCHARGE ORDERS DISCHARGE INFORMATION: FINAL DIAGNOSIS Problems Medical Problems: (1) Hypoxia Status: Acute (2) Lung malignancy Status: Acute (3) Respiratory failure Status: Acute (4) Suspected 2019 novel coronavirus infection Status: Acute CONDITION ON DISCHARGE: Critical CODE STATUS: Code Status: DNR/DNI HOSPICE: HOSPICE: Yes HOSPICE EVAL & TREAT: Yes POST DISCHARGE ORDERS: ACTIVITY ORDERS: Activity as tolerated DISCHARGE MEDICATIONS: Home Meds Active Scripts Lorazepam (ATIVAN) 1 Mg Tablet, 1 MG PO PRN Q8HRS PRN for ANXIETY / AGITATION for 5 Days, #15 TAB 0 Refills Prov:TALI CAPONE MD 04/30/20 [Nicotine 14MG] 1 PATCH PATCH No Conflict Check, 1 PATCH TD PRN DAILY PRN for SMOKING CESSATION for 30 Days, #30 1 Refill Prov:TALI CAPONE MD 04/30/20 Reported Medications Budesonide/Formoterol Fumarate (SYMBICORT 160-4.5 MCG INHALER) 10.2 Gm Hfa.aer.ad, 2 PUFF IH BID, #10.6 GM 3 Refills 02/23/16 Albuterol Sulfate (PROVENTIL HFA INHALER) 6.7 Gm Hfa.aer.ad, 1 PUFF IH PRN Q4HRS PRN for SHORTNESS OF BREATH, INHALER 0 Refills 02/23/16 Tiotropium [place] (SPIRIVA) 18 Mcg Cap.w.dev, 1 CAP IH DAILY, #30 CAP 3 Refills 02/23/16 Diltiazem Hcl (CARDIZEM CD) 240 Mg Cap.er.24h, 1 CAP PO DAILY, #30 CAP 5 Refills 02/23/16 ANTONIO VERDUGO MD May 25, 2020 08:21
--- NOTE | 2020-05-25 08:24 | PDOC ---
Provider Note Date of Service: DATE: 05/25/20 TIME: 08:23 Provider Note [id number] Justifications for Admission Other Justification ANTONIO VERDUGO MD May 25, 2020 08:24
--- NOTE | 2020-05-25 08:53 | DS ---
DATE OF DISCHARGE: 05/25/2020 HOSPITAL SUMMARY: A 74-year-old white male with known stage IV non-small cell lung cancer, came in with increasing respiratory distress and much larger right lung tumor. Laboratory studies were unremarkable. He was made a DNR, comfort care and was on IV morphine and lorazepam and currently on about 5 mg an hour of morphine and unresponsive with a respiratory rate of about 5 or 6 per minute. He and his family wished for him to go home with hospice and hospice has already been consulted and this will be accomplished today if he still survives. is fully aware of his situation, is comfortable with the process and is advised this is expected will be in the next 1-2 days. FINAL DIAGNOSES: 1. Stage IV non-small cell lung cancer, progressive. 2. Acute respiratory distress secondary to lung cancer. OPERATIONS, PROCEDURES, COMPLICATIONS: None. CONSULTATIONS: Dr. Harper and [facility]. DISPOSITION: He will go home on morphine 5 mg an hour, p.r.n. lorazepam and any other p.r.n. meds as needed. His prognosis is terminal in the next several hours to a day or two. ANTONIO VERDUGO MD DR: NAYAN/nts JOB#: [id number] / [id number]
--- NOTE | 2020-05-25 10:12 | PDOC ---
PULMONARY PROGRESS NOTES DATE: 05/25/20 TIME: 10:07 Subjective now on hospice 5 liters N/C and Morphine gtt Vitals Vital Signs Date Time Temp Pulse Resp B/P (MAP) Pulse Ox O2 Delivery O2 Flow Rate FiO2 05/25/20 07:00 96.8 95 16 109/40 (63) 91 Nasal Cannula 4.0 96.8 General: Lethargic Lungs: Other (decrease bs) Cardiovascular: S1 Abdomen: Soft Extremities: No Edema Skin: Warm Medications Active Scripts Medications Dose Route/Sig Max Daily Dose Days Date Category Ativan (Lorazepam) 1 Mg Tablet 1 Mg PO PRN Q8HRS PRN 5 04/30/20 Rx [Nicotine 14MG] 1 PATCH Patch 1 Patch TD PRN DAILY PRN 30 04/30/20 Rx Symbicort 160-4.5 Mcg Inhaler (Budesonide/Formoterol Fumarate) 10.2 Gm Hfa.aer.ad 2 Puff IH BID 02/23/16 Reported Proventil Hfa Inhaler (Albuterol Sulfate) 6.7 Gm Hfa.aer.ad 1 Puff IH PRN Q4HRS PRN 02/23/16 Reported Spiriva (Tiotropium [place]) 18 Mcg Cap.w.dev 1 Cap IH DAILY 02/23/16 Reported Cardizem Cd (Diltiazem Hcl) 240 Mg Cap.er.24h 1 Cap PO DAILY 02/23/[address] chest IMPRESSION: Right lung mass may have increased slightly in size. It is causing narrowing and probable occlusion of some of the right upper lobe pulmonary artery branches, but this had a similar appearance previously. No pulmonary embolism is identified on today's study. Impression . 1. Acute on chronic hypoxic respiratory failure secondary to multifactorial etiologies including progression of non-small cell lung cancer, underlying chronic obstructive pulmonary disease and audible wheezing from airway obstruction. 2. The patient with recently diagnosed non-small cell lung cancer. He has had 14.4 cm mass in the right hilar and suprahilar area with extension and encasement of the superior vena cava. He is status post stent. There is involvement of the trachea with extrinsic compression and also involvement of the right and left main stem bronchus with airway compression. He is nonresectable. 3. Status post stent for superior vena cava syndrome. 4. Postobstructive pneumonia. 5. History of pseudomonas isolated from bronchoscopy in Dec 6. Suspected end-stage chronic obstructive pulmonary disease. Plan . Continue supplemental oxygen for comfort Planned to D/C home on hospice today continue comfort medications-- currently on morphine gtt We will sign off, please call if any concerns of questions D/W MONTSERRAT CASTAÑEDA MD May 25, 2020 10:12
--- NOTE | 2020-05-25 11:08 | NUR ---
SW following for discharge planning. Spoke with RN and reviewed chart. SW met with pt's today and provided support. Hospice discharge orders phoned and faxed to Olga with [facility]. OLLIE arranged for stretcher transportation at noon with 4l 02 via [facility] and [facility] [employer]. PCS form faxed and copy on the chart. No further SW needs at this time.
--- NOTE | 2020-05-25 13:42 | NUR ---
patient discharged home with on [facility] serviced. [facility] here to transport pt via gurney. patient on 5Lnc. Unresponsive. IV from LFA removed, cath intact. IV to RFA left in place as [facility] may need to administer IV meds. Baig catheter also left in place. DNR paperwork given to transport.
== END 2020-05-25 12:30 | disposition hospice, home (50) | DRG 180 ==
LOC: ER 06:21 → ED HOLD 11:08 → 1 WEST ICU 15:40 → 5 NORTH 05-24 14:44
PROVIDERS: ADMIT Family Medicine; ATTEND Family Medicine
DX: C34.90 Malignant neoplasm of unspecified part of unspecified bronchus or lung (principal); J18.9 Pneumonia, unspecified organism; J96.21 Acute and chronic respiratory failure with hypoxia; I87.1 Compression of vein; J44.0 Chronic obstructive pulmonary disease with (acute) lower respiratory infection; F17.200 Nicotine dependence, unspecified, uncomplicated; I10 Essential (primary) hypertension; Z90.81 Acquired absence of spleen; Z88.8 Allergy status to other drugs, medicaments and biological substances; Z66 Do not resuscitate; Z51.5 Encounter for palliative care
CPT/HCPCS: 36415; 36600; 71275; 80053; 82553; 82805; 83605; 83735; 83880; 84484; 85025; 85610; 85730; 87040; 87426; 87804; 93005; 94640; 96361; 96365; 96368; 96375; 96376; J0456; J1100; J1170; J2060; J2270; J2405; J2543; J7030; Q9967; U0003; 99291-25; G0378